=== PATIENT | male | born 1945 | race Caucasian/White ===

== ENCOUNTER 2023-01-10 13:40 | Emergency (ER) | payer OTHER ==
[~2023-01-10] VITALS: Ht 172.7 cm; Wt 76.5 kg
[2023-01-10 13:43] VITALS: TEMP 98.1
[2023-01-10 17:05] LABS: BASO # 0.1 10^3/uL (0.0-0.2); BASO % 0.9 % (0.0-1.0); EOS % 0.1 % (0.0-3.0); HEMATOCRIT 40.6 % (42.0-52.0); HEMOGLOBIN 13.9 g/dl (13.5-17.5); LYMPH # 1.1 10^3/uL (1.5-5.0); LYMPH % 11.4 % (24.0-44.0); MEAN CORPUSCULAR HEMOGLOBIN 30.6 pg (27.0-33.0); MEAN CORPUSCULAR HGB CONC 34.2 g/dl (32.0-36.5); MEAN CORPUSCULAR VOLUME 89.4 fl (80.0-96.0); MONO # 0.8 10^3/uL (0.0-0.8); MONO % 8.2 % (2.0-8.0); NEUTROPHILS # 7.3 10^3/uL (1.5-8.5); NEUTROPHILS % 78.9 % (36.0-66.0); PLATELET COUNT, AUTOMATED 442 10^3/uL (150-450); RED BLOOD COUNT 4.54 10^6/uL (4.30-6.10); WHITE BLOOD COUNT 9.3 10^3/uL (4.0-10.0)
[2023-01-10 17:23] LABS: ERYTHROCYTE SEDIMENTATION RATE 44 mm/hr (0-20)
[2023-01-10 17:25] LABS: C REACTIVE PROTEIN QUANTITATIV 5.3 MG/DL (<1.0)
[2023-01-10 17:27] LABS: CALCIUM LEVEL 9.7 MG/DL (8.3-10.6); CREATININE FOR GFR 1.43 MG/DL (0.70-1.30); GLOMERULAR FILTRATION RATE 51.2 (>42); POTASSIUM SERUM 5.6 MMOL/L (3.5-5.1)
[2023-01-10] MEDS ORDERED: TRAM50TA2 PO (18:04)
[2023-01-10] MEDS ORDERED: AMOX875T2 PO (18:04)
[2023-01-10] MEDS ORDERED: AUGMENTIN 875 MG TAB PO ONE (18:10)
[2023-01-10] MEDS ORDERED: traMADol 50 MG TAB PO ONE (18:10)
[2023-01-10 18:12] VITALS: BP 141/75; O2SAT 97
== END 2023-01-10 18:16 | disposition home or self-care (01) ==
LOC: M ED 13:40
DX: A28.1 Cat-scratch disease (principal); S80.911A Unspecified superficial injury of right knee, initial encounter; S80.11XA Contusion of right lower leg, initial encounter; M79.661 Pain in right lower leg; I10 Essential (primary) hypertension; F17.200 Nicotine dependence, unspecified, uncomplicated; Z79.2 Long term (current) use of antibiotics; Z79.899 Other long term (current) drug therapy